=== PATIENT | female | born 1965 | race African-American/Black ===

== ENCOUNTER 2021-06-24 18:30 | Observation (INO) ==
[2021-06-24] MEDS ORDERED: SODIUM CHLORIDE 0.9% 500 ML IV STA (19:03)
[2021-06-24 19:22] LABS: Basophils % 0.5 % (0.0-0.8); Eosinophils % 0.8 % (0.00-10.9); Hematocrit 36.7 VOL% (35.7-47.0); Hemoglobin 11.8 GM/DL (12.0-16.0); Lymphocytes # 1.6 10*3/uL (1.4-4.0); Lymphocytes % 41.8 % (21.3-54.2); Mean Corpuscular HGB Conc 32.2 GM/DL (32-36); Mean Corpuscular Volume 85.5 FL (87-102); Mean Platelet Volume 10.7 FL (9.6-12.0); Monocytes # 0.3 10*3/uL (0.11-0.8); Monocytes % 8.4 % (1.7-12.7); Neutrophils % 48.5 % (38.7-73.9); Platelet Count 269 T/CUMM (130-400); Red Blood Count 4.29 MC/CUMM (3.8-5.5); Red Cell Distribution Width 13.8 % (9.3-17.3); White Blood Count 3.9 T/CUMM (4-12)
[2021-06-24 19:40] LABS: Alanine Aminotransferase 31 U/L (13-56); Albumin 3.3 G/DL (3.4-5.0); Alkaline Phosphatase 81 U/L (45-117); Aspartate Amino Transferase 25 U/L (0-37); Bilirubin,Total < 0.39 MG/DL (0.20-1.00); Blood Urea Nitrogen 11 MG/DL (7-18); Calcium 9.2 MG/DL (8.5-10.1); Carbon Dioxide 31 MMOL/L (21-32); Chloride 105 MMOL/L (98-107); Estimated Glom Filtration Rate 78 ML/MIN; Glucose 92 MG/DL (74-106); Osmolality,Calculated 277.4 MOS/KG (273-304); Potassium 3.9 MMOL/L (3.5-5.1); Sodium 140 MMOL/L (136-145); Total Protein 6.6 G/DL (6.4-8.2)
[2021-06-24 19:54] LABS: Band Neutrophils 1 % (0-10); Lymphocytes 51 % (20-55); Platelet Estimate Normal; Total Cells Counted 100
[2021-06-24] MEDS ORDERED: ENOXAPARIN 100 MG/ML SYRINGE SUBCUT STA (20:17)
[2021-06-24] MEDS ORDERED: ASPIRIN EC 325 MG TABLET PO STA (20:17)
[2021-06-24 20:18] LABS: Bilirubin,Urine Negative (Negative); Blood, Urine Trace mg/dL (Negative); Glucose,Urine (UA) Negative (Negative); Ketones,Urine Negative (Negative); Nitrite,Urine Negative (Negative); Protein,Urine Negative (Negative); Urine Appearance Clear (Clear); Urine Color Light Yellow (Yellow); Urine Urobilinogen 0.2 eU/dL (<2.0)
[2021-06-24 20:19] LABS: RBC,Urine 1 /HPF (0-4)
[2021-06-24] MEDS ORDERED: ENOXAPARIN 40 MG/0.4 ML SYRINGE SUBCUT STA (20:22)
[2021-06-24 20:26] LABS: Barbiturates Screen,Urine Negative (Negative); Benzodiazepines Screen,Urine Negative (Negative); Cannabinoid Screen,Urine Negative (Negative); Opiate Screen,Urine Negative (Negative); Phencyclidine Screen,Urine Negative (Negative)
[2021-06-24] MEDS ORDERED: hydrALAZINE 20 MG/1 ML VIAL IV PRN (20:30)
[2021-06-24] MEDS ORDERED: GLUCAGON 1 MG VIAL IM PRN (20:30)
[2021-06-24] MEDS ORDERED: ACETAMINOPHEN 325 MG TABLET PO PRN (20:30)
[2021-06-24] MEDS ORDERED: ONDANSETRON 4 MG/2 ML VIAL IV PRN (20:30)
[2021-06-24] MEDS ORDERED: DEXTROSE 10% 250 ML BAG IV PRN (20:40)
[2021-06-24] MEDS ORDERED: ENOXAPARIN 40 MG/0.4 ML SYRINGE SUBCUT SCH (21:00)
[2021-06-24] MEDS: DOCUSATE SODIUM 100 MG CAPSULE PO SCH (21:08)
[2021-06-25 05:02] LABS: Basophils % 0.8 % (0.0-0.8); Eosinophils # 0.1 10*3/uL (0.0-0.87); Eosinophils % 1.6 % (0.00-10.9); Hematocrit 35.8 VOL% (35.7-47.0); Hemoglobin 11.3 GM/DL (12.0-16.0); Lymphocytes # 2.3 10*3/uL (1.4-4.0); Lymphocytes % 59.8 % (21.3-54.2); Mean Corpuscular HGB Conc 31.6 GM/DL (32-36); Mean Corpuscular Volume 86.5 FL (87-102); Mean Platelet Volume 11.1 FL (9.6-12.0); Monocytes # 0.3 10*3/uL (0.11-0.8); Monocytes % 7.8 % (1.7-12.7); Platelet Count 249 T/CUMM (130-400); Red Blood Count 4.14 MC/CUMM (3.8-5.5); Red Cell Distribution Width 13.9 % (9.3-17.3); White Blood Count 3.8 T/CUMM (4-12)
[2021-06-25 05:27] LABS: Atypical Lymphocytes Few; Eosinophils 6 % (0-10); Hypochromia 1+; Lymphocytes 61 % (20-55); Microcytosis Slight; Total Cells Counted 100
[2021-06-25 05:28] LABS: Ovalocytes Slight
[2021-06-25 05:46] LABS: Calcium 8.5 MG/DL (8.5-10.1); Osmolality,Calculated 271.8 MOS/KG (273-304); Potassium 4.3 MMOL/L (3.5-5.1); Thyroid Stimulating Hormone 0.729 uIU/ml (0.358-3.74)
[2021-06-25] MEDS: DOCUSATE SODIUM 100 MG CAPSULE PO SCH (08:50)
[2021-06-25] MEDS ORDERED: PANTOPRAZOLE 40 MG TABLET PO SCH (09:00)
[2021-06-25 11:27] VITALS: BP 137/77
== END 2021-06-25 15:33 ==
LOC: EDBD → EDUNIT# → N.EDINP 18:30 → N.ED 18:30 → N.TELEN 23:38
PROVIDERS: ADMIT Internal Medicine Geriatric Medicine; ATTEND Internal Medicine Geriatric Medicine